=== PATIENT | female | born 1940 | race Caucasian/White ===

== ENCOUNTER 2021-05-09 22:37 | Inpatient (IN) ==
[2021-05-10] MEDS ORDERED: Acetaminophen 325 MG TABLET PO PRN (03:33)
[2021-05-10] MEDS ORDERED: Naloxone 0.4 MG/ML INJ IVP PRN (03:33)
[2021-05-10] MEDS ORDERED: Melatonin 3 MG TABLET PO PRN (03:33)
[2021-05-10] MEDS ORDERED: Ondansetron 4 MG/2 ML VIAL IVP PRN (03:33)
[2021-05-10] MEDS ORDERED: *HR* Dextrose 50 % in Water (Syg) 50 ML SYRINGE IVP PRN (03:37)
[2021-05-10] MEDS ORDERED: Dextrose Gel 15 GM/37.5 ML TUBE PO PRN ×2 (03:37)
[2021-05-10] MEDS ORDERED: D5% in Water 1,000 ML IVC PRN (03:37)
[2021-05-10] MEDS ORDERED: methylPREDNISolone 125 MG/2 ML VIAL IVP ONE (03:58)
[2021-05-10] MEDS ORDERED: Furosemide 20 MG/2 ML VIAL IVP ONE (04:05)
[2021-05-10 04:06] LABS: ABG Base Excess 3 mEq/L (-2 to 3); ABG HCO3 29 mEq/L (21-27); ABG Oxygen Saturation 88 % (95-98); ABG PCO2 49 mmHg (35-45); ABG PH 7.39 pH Units (7.32-7.45); ABG PO2 56 mmHg (85-104); ABG TCO2 31 mEq/L (20-26); Blood Gas Modality NIV
[2021-05-10] MEDS: Ipratropium 1 PUFF INHALER IH SCH ×6 (04:07→23:42)
[2021-05-10 04:33] LABS: Basophils % 0.1 %; Eosinophils % 0.1 %; Hematocrit 40.5 % (35.3-44.9); Hemoglobin 12.9 g/dL (11.5-15.4); Immature Granulocytes % 0.3 % (0-4); Immature Platelets 6.4 % (1.1-6.1); Lymphocytes # 0.7 K/mcL (0.6-4.6); Mean Corpuscular HGB Conc 31.9 g/dL (31.6-35.5); Mean Corpuscular Hemoglobin 27.2 pg (28.0-33.3); Mean Corpuscular Volume 85.3 fL (83.0-100.0); Mean Platelet Volume 10.3 fL (9.4-12.4); Monocytes # 0.8 K/mcL (0.0-1.3); Monocytes % 7.3 %; Neutrophils # 9.3 K/mcL (1.6-8.9); Platelet Count 105 K/mcL (140-400); Red Blood Count 4.75 M/mcL (3.82-4.97); Red Cell Distribution Width 19.6 % (11.5-14.5); Segmented Neutrophils % 86.2 %; White Blood Count 10.8 K/mcL (4.3-11.1)
[2021-05-10 04:40] LABS: INR 1.2; Prothrombin Time 13.7 Seconds (9.4-12.1)
[2021-05-10 04:53] LABS: Lactate Dehydrogenase 578 Units/L (140-271)
[2021-05-10] MEDS: Dexmedetomidine HCl 400 MCG/100 ML MLS IVC SCH ×3 (05:02→17:04)
[2021-05-10 05:04] LABS: Alanine Aminotransferase 25 Units/L (7-52); Albumin 3.6 g/dL (3.5-5.7); Albumin/Globulin Ratio 1.3 (1.1-2.2); Alkaline Phosphatase 87 Units/L (34-104); Aspartate Amino Transferase 46 Units/L (13-39); BUN/Creatinine Ratio 22 (6-26); Bilirubin,Total 0.5 mg/dL (0.3-1.0); Blood Urea Nitrogen 17 mg/dL (8-23); Carbon Dioxide 31 mEq/L (23-29); Chloride 95 mEq/L (98-107); Globulin 2.7 g/dL (2.4-3.5); Glucose 100 mg/dL (70-105); Osmolality,Calculated 282 (280-300); Phosphorous 2.8 mg/dL (2.7-4.5); Potassium 3.5 mEq/L (3.5-5.1); Sodium 135 mEq/L (136-145); Total Protein 6.3 g/dL (6.4-8.9); eGFR For African Americans > 60 (> 60); eGFR For Non-African Americans > 60 (> 60)
[2021-05-10] MEDS ORDERED: *HR* Heparin 5,000 UNIT/ML VIAL IVP ONE (06:33)
[2021-05-10] MEDS ORDERED: *HR* Heparin 5,000 UNIT/ML VIAL IVP PRN ×2 (06:33)
[2021-05-10] MEDS ORDERED: Budesonide/Formoterol 160/4.5 1 PUFF INH IH ONE (06:43)
[2021-05-10] MEDS ORDERED: Heparin 25,000 UNIT/250 ML 25,000 UNIT/250 ML IV.SOLN IVC SCH (06:45)
[2021-05-10] MEDS: Budesonide/Formoterol 160/4.5 1 PUFF INH IH SCH ×2 (07:27→20:03)
[2021-05-10] MEDS: Dexamethasone Sodium Phos/PF 10 MG/ML VIAL IVP SCH (08:30)
[2021-05-10] MEDS: Saline Nasal Spray 44 ML BOTTLE NS SCH ×4 (08:37→19:54)
[2021-05-10] MEDS: Multivit/Ca/Min/Fe/FA 1 TAB TABLET PO SCH (08:37)
[2021-05-10] MEDS: Saliva Stimulant 44.3ml BOTTLE PO SCH ×4 (08:37→19:54)
[2021-05-10] MEDS: Artificial Tears SOLN 15 ML BOTTLE BOTH EYES SCH ×4 (08:37→19:53)
[2021-05-10] MEDS: Cholecalciferol (D-3) 1,000 UNIT (25MCG) TABLET PO SCH (08:37)
[2021-05-10] MEDS: Aspirin 81 MG TAB.CHEW PO SCH (08:37)
[2021-05-10] MEDS ORDERED: Chlorhexidine Rinse 15 ML MOUTHWASH MM SCH (09:00)
[2021-05-10] MEDS ORDERED: Haloperidol Lactate 5 MG/ML VIAL IVP ONE (09:43)
[2021-05-10 09:56] LABS: C-Reactive Protein 83 mg/L (Less than 10)
[2021-05-10 13:24] LABS: Ferritin 385 ng/mL (10-120)
[2021-05-10] MEDS ORDERED: Pantoprazole 40 MG VIAL IVP SCH (14:15)
[2021-05-10] MEDS: cefTRIAXone 1,000 MG in 0.9 % Sodium Chloride Mini Bag 100 ML IVP SCH (15:34)
[2021-05-10] MEDS ORDERED: Piperacillin/Tazobactam 3.375 GM in 0.9 % Sodium Chloride Mini Bag 100 ML IVPB SCH (16:00)
[2021-05-10] MEDS: Famotidine 20 MG/2 ML VIAL IVP SCH (17:05)
[2021-05-10] MEDS: *HR* Enoxaparin 40 MG/0.4 ML SYRINGE SQ SCH (17:05)
[2021-05-10] MEDS: Haloperidol Lactate 5 MG/ML VIAL IVP PRN (17:53)
[2021-05-10] MEDS ORDERED: *HR* Heparin 5,000 UNIT/ML VIAL SQ SCH (18:00)
[2021-05-10] MEDS: *HR* LORazepam 2 MG/ML VIAL IVP PRN (18:17)
[2021-05-10] MEDS ORDERED: Water for inj. (sterile) 10 ML ONE (19:36)
[2021-05-10] MEDS: Ziprasidone 10 MG, Closed System Device IM Kit 1 EACH in Water for inj. (sterile) 0.5 ML IM ONE ×2 (19:44→19:51)
[2021-05-10] MEDS ORDERED: *HR* LORazepam 2 MG/ML VIAL IVP ONE ×2 (20:54→22:15)
[2021-05-11] MEDS: Dexmedetomidine HCl 400 MCG/100 ML MLS IVC SCH ×5 (00:16→20:09)
[2021-05-11 03:21] LABS: Hematocrit 36.7 % (35.3-44.9); Hemoglobin 12.3 g/dL (11.5-15.4); Immature Platelets 6.9 % (1.1-6.1); Mean Corpuscular HGB Conc 33.5 g/dL (31.6-35.5); Mean Corpuscular Hemoglobin 28.2 pg (28.0-33.3); Mean Corpuscular Volume 84.2 fL (83.0-100.0); Mean Platelet Volume 10.5 fL (9.4-12.4); Red Blood Count 4.36 M/mcL (3.82-4.97); Red Cell Distribution Width 19.1 % (11.5-14.5); White Blood Count 4.4 K/mcL (4.3-11.1)
[2021-05-11 03:43] LABS: BUN/Creatinine Ratio 44 (6-26); Blood Urea Nitrogen 32 mg/dL (8-23); Calcium 8.8 mg/dL (8.6-10.3); Carbon Dioxide 31 mEq/L (23-29); Chloride 98 mEq/L (98-107); Glucose 178 mg/dL (70-105); Osmolality,Calculated 297 (280-300); Potassium 3.4 mEq/L (3.5-5.1); Sodium 138 mEq/L (136-145); eGFR For African Americans > 60 (> 60); eGFR For Non-African Americans > 60 (> 60)
[2021-05-11] MEDS: Ipratropium 1 PUFF INHALER IH SCH ×6 (03:52→23:19)
[2021-05-11] MEDS: *HR* Enoxaparin 40 MG/0.4 ML SYRINGE SQ SCH ×2 (05:30→16:09)
[2021-05-11] MEDS: Famotidine 20 MG/2 ML VIAL IVP SCH ×2 (05:30→16:09)
[2021-05-11] MEDS: Budesonide/Formoterol 160/4.5 1 PUFF INH IH SCH ×2 (07:24→19:24)
[2021-05-11] MEDS: Saliva Stimulant 44.3ml BOTTLE PO SCH ×4 (09:29→21:01)
[2021-05-11] MEDS: Saline Nasal Spray 44 ML BOTTLE NS SCH ×4 (09:29→21:01)
[2021-05-11] MEDS: Aspirin 81 MG TAB.CHEW PO SCH (09:29)
[2021-05-11] MEDS: Artificial Tears SOLN 15 ML BOTTLE BOTH EYES SCH ×4 (09:29→21:01)
[2021-05-11] MEDS: Cholecalciferol (D-3) 1,000 UNIT (25MCG) TABLET PO SCH (09:30)
[2021-05-11] MEDS: Multivit/Ca/Min/Fe/FA 1 TAB TABLET PO SCH (09:30)
[2021-05-11] MEDS: Dexamethasone Sodium Phos/PF 10 MG/ML VIAL IVP SCH (09:32)
[2021-05-11] MEDS: Haloperidol Lactate 5 MG/ML VIAL IVP PRN (15:02)
[2021-05-11] MEDS: cefTRIAXone 1,000 MG in 0.9 % Sodium Chloride Mini Bag 100 ML IVP SCH (15:03)
[2021-05-11] MEDS: *HR* LORazepam 2 MG/ML VIAL IVP PRN ×3 (16:09→23:10)
[2021-05-11] MEDS: Morphine Sulfate 2 MG/ML SYRINGE IVP PRN (16:26)
[2021-05-11] MEDS ORDERED: Ziprasidone 10 MG, Closed System Device IM Kit 1 EACH in Water for inj. (sterile) 0.5 ML IM ONE (16:58)
[2021-05-11] MEDS ORDERED: Ziprasidone 10 MG, Closed System Device IM Kit 1 EACH in Water for inj. (sterile) 0.5 ML IM PRN (17:02)
[2021-05-12] MEDS: Dexmedetomidine HCl 400 MCG/100 ML MLS IVC SCH ×5 (00:05→20:14)
[2021-05-12] MEDS: Haloperidol Lactate 5 MG/ML VIAL IVP PRN ×3 (00:44→15:29)
[2021-05-12] MEDS: Ipratropium 1 PUFF INHALER IH SCH ×6 (03:23→23:02)
[2021-05-12] MEDS ORDERED: diazePAM 10 MG/2 ML SYRINGE IVP ONE (04:52)
[2021-05-12] MEDS: Famotidine 20 MG/2 ML VIAL IVP SCH ×2 (05:36→16:33)
[2021-05-12] MEDS: *HR* Enoxaparin 40 MG/0.4 ML SYRINGE SQ SCH ×2 (05:37→16:33)
[2021-05-12] MEDS: Morphine Sulfate 2 MG/ML SYRINGE IVP PRN ×2 (06:23→12:02)
[2021-05-12] MEDS: Saline Nasal Spray 44 ML BOTTLE NS SCH ×3 (07:25→15:11)
[2021-05-12] MEDS: Saliva Stimulant 44.3ml BOTTLE PO SCH ×3 (07:25→15:11)
[2021-05-12] MEDS: Artificial Tears SOLN 15 ML BOTTLE BOTH EYES SCH ×3 (07:25→15:10)
[2021-05-12] MEDS: Aspirin 81 MG TAB.CHEW PO SCH (07:26)
[2021-05-12] MEDS: Multivit/Ca/Min/Fe/FA 1 TAB TABLET PO SCH (07:26)
[2021-05-12] MEDS: Cholecalciferol (D-3) 1,000 UNIT (25MCG) TABLET PO SCH (07:26)
[2021-05-12] MEDS: Dexamethasone Sodium Phos/PF 10 MG/ML VIAL IVP SCH (07:33)
[2021-05-12] MEDS: *HR* LORazepam 2 MG/ML VIAL IVP PRN ×2 (07:34→13:22)
[2021-05-12] MEDS: Budesonide/Formoterol 160/4.5 1 PUFF INH IH SCH ×2 (07:52→19:44)
[2021-05-12] MEDS: Furosemide 20 MG/2 ML VIAL IVP SCH (08:56)
[2021-05-12] MEDS: cefTRIAXone 1,000 MG in 0.9 % Sodium Chloride Mini Bag 100 ML IVP SCH (13:22)
[2021-05-12] MEDS: *HR* HYDROmorphone (PF) 1 MG/ML SYRINGE IVP PRN ×2 (16:33→20:33)
[2021-05-13] MEDS: *HR* HYDROmorphone (PF) 1 MG/ML SYRINGE IVP PRN ×6 (01:07→22:09)
[2021-05-13] MEDS: Artificial Tears SOLN 15 ML BOTTLE BOTH EYES SCH ×5 (02:37→20:21)
[2021-05-13] MEDS: Dexmedetomidine HCl 400 MCG/100 ML MLS IVC SCH ×5 (02:38→23:28)
[2021-05-13] MEDS: Ipratropium 1 PUFF INHALER IH SCH ×6 (03:59→23:42)
[2021-05-13] MEDS: Saliva Stimulant 44.3ml BOTTLE PO SCH ×5 (04:12→20:21)
[2021-05-13] MEDS: Saline Nasal Spray 44 ML BOTTLE NS SCH ×5 (04:12→20:21)
[2021-05-13] MEDS: *HR* Enoxaparin 40 MG/0.4 ML SYRINGE SQ SCH ×2 (06:12→17:51)
[2021-05-13] MEDS: Famotidine 20 MG/2 ML VIAL IVP SCH ×2 (06:12→17:51)
[2021-05-13 06:23] LABS: Hematocrit 41.3 % (35.3-44.9); Hemoglobin 13.3 g/dL (11.5-15.4); Mean Corpuscular HGB Conc 32.2 g/dL (31.6-35.5); Mean Corpuscular Hemoglobin 27.9 pg (28.0-33.3); Mean Corpuscular Volume 86.6 fL (83.0-100.0); Mean Platelet Volume 10.8 fL (9.4-12.4); Platelet Count 116 K/mcL (140-400); Red Blood Count 4.77 M/mcL (3.82-4.97); Red Cell Distribution Width 19.3 % (11.5-14.5)
[2021-05-13 06:25] LABS: White Blood Count 10.5 K/mcL (4.3-11.1)
[2021-05-13 06:41] LABS: BUN/Creatinine Ratio 52 (6-26); Blood Urea Nitrogen 38 mg/dL (8-23); Calcium 9.2 mg/dL (8.6-10.3); Carbon Dioxide 37 mEq/L (23-29); Chloride 100 mEq/L (98-107); Glucose 132 mg/dL (70-105); Lactate Dehydrogenase 447 Units/L (140-271); Magnesium 2.6 mg/dL (1.6-2.6); Osmolality,Calculated 309 (280-300); Potassium 3.6 mEq/L (3.5-5.1); Sodium 144 mEq/L (136-145); eGFR For African Americans > 60 (> 60); eGFR For Non-African Americans > 60 (> 60)
[2021-05-13 06:57] LABS: Ferritin 248 ng/mL (10-120)
[2021-05-13] MEDS: Budesonide/Formoterol 160/4.5 1 PUFF INH IH SCH ×2 (07:55→19:56)
[2021-05-13] MEDS: Furosemide 20 MG/2 ML VIAL IVP SCH (09:32)
[2021-05-13] MEDS: Aspirin 81 MG TAB.CHEW PO SCH (09:33)
[2021-05-13] MEDS: Dexamethasone Sodium Phos/PF 10 MG/ML VIAL IVP SCH (09:33)
[2021-05-13] MEDS: Cholecalciferol (D-3) 1,000 UNIT (25MCG) TABLET PO SCH (09:33)
[2021-05-13] MEDS: Multivit/Ca/Min/Fe/FA 1 TAB TABLET PO SCH (09:33)
[2021-05-13 12:14] LABS: C-Reactive Protein 40 mg/L (Less than 10)
[2021-05-13] MEDS: *HR* LORazepam 2 MG/ML VIAL IVP PRN ×3 (13:55→18:35)
[2021-05-13] MEDS ORDERED: Ziprasidone 10 MG, Closed System Device IM Kit 1 EACH in Water for inj. (sterile) 0.5 ML IM PRN (15:10)
[2021-05-13] MEDS ORDERED: Haloperidol Lactate 5 MG/ML VIAL IVP PRN (15:11)
[2021-05-13] MEDS: cefTRIAXone 1,000 MG in 0.9 % Sodium Chloride Mini Bag 100 ML IVP SCH (15:50)
[2021-05-14] MEDS: *HR* LORazepam 2 MG/ML VIAL IVP PRN ×4 (00:07→23:18)
[2021-05-14] MEDS: Ipratropium 1 PUFF INHALER IH SCH ×6 (03:33→23:02)
[2021-05-14] MEDS: *HR* HYDROmorphone (PF) 1 MG/ML SYRINGE IVP PRN ×5 (04:02→20:10)
[2021-05-14] MEDS: Dexmedetomidine HCl 400 MCG/100 ML MLS IVC SCH ×4 (04:31→20:08)
[2021-05-14] MEDS: Famotidine 20 MG/2 ML VIAL IVP SCH ×2 (05:18→17:28)
[2021-05-14] MEDS: *HR* Enoxaparin 40 MG/0.4 ML SYRINGE SQ SCH ×2 (05:18→17:28)
[2021-05-14] MEDS: Saliva Stimulant 44.3ml BOTTLE PO SCH ×4 (07:54→20:09)
[2021-05-14] MEDS: Saline Nasal Spray 44 ML BOTTLE NS SCH ×4 (07:54→20:09)
[2021-05-14] MEDS: Artificial Tears SOLN 15 ML BOTTLE BOTH EYES SCH ×4 (07:54→22:31)
[2021-05-14] MEDS: Cholecalciferol (D-3) 1,000 UNIT (25MCG) TABLET PO SCH (07:55)
[2021-05-14] MEDS: Budesonide/Formoterol 160/4.5 1 PUFF INH IH SCH ×2 (07:55→19:24)
[2021-05-14] MEDS: Multivit/Ca/Min/Fe/FA 1 TAB TABLET PO SCH (07:55)
[2021-05-14] MEDS: Levothyroxine Sodium 100 MCG VIAL IVP SCH (08:11)
[2021-05-14] MEDS: Dexamethasone Sodium Phos/PF 10 MG/ML VIAL IVP SCH (08:13)
[2021-05-14] MEDS: Furosemide 20 MG/2 ML VIAL IVP SCH (08:14)
[2021-05-14] MEDS: cefTRIAXone 1,000 MG in 0.9 % Sodium Chloride Mini Bag 100 ML IVP SCH (15:19)
[2021-05-14] MEDS ORDERED: Lidocaine -MPF 1% 5 ML AMPUL INFILT ONE (15:45)
[2021-05-14] MEDS: Insulin LISPRO 300 UNITS/3 ML VIAL SUBQ SCH ×2 (17:29→20:13)
[2021-05-15] MEDS: Insulin LISPRO 300 UNITS/3 ML VIAL SUBQ SCH ×6 (00:55→21:18)
[2021-05-15] MEDS: Dexmedetomidine HCl 400 MCG/100 ML MLS IVC SCH ×5 (00:56→21:15)
[2021-05-15] MEDS: *HR* HYDROmorphone (PF) 1 MG/ML SYRINGE IVP PRN ×3 (02:50→23:04)
[2021-05-15] MEDS: Ipratropium 1 PUFF INHALER IH SCH ×5 (03:14→19:49)
[2021-05-15] MEDS: Famotidine 20 MG/2 ML VIAL IVP SCH ×2 (05:28→17:31)
[2021-05-15] MEDS: *HR* Enoxaparin 40 MG/0.4 ML SYRINGE SQ SCH ×2 (05:28→17:31)
[2021-05-15 05:59] LABS: Hematocrit 42.6 % (35.3-44.9); Hemoglobin 13.1 g/dL (11.5-15.4); Mean Corpuscular HGB Conc 30.8 g/dL (31.6-35.5); Mean Corpuscular Hemoglobin 27.2 pg (28.0-33.3); Mean Corpuscular Volume 88.6 fL (83.0-100.0); Mean Platelet Volume 10.6 fL (9.4-12.4); Platelet Count 131 K/mcL (140-400); Red Blood Count 4.81 M/mcL (3.82-4.97); Red Cell Distribution Width 19.9 % (11.5-14.5); White Blood Count 9.4 K/mcL (4.3-11.1)
[2021-05-15 06:19] LABS: BUN/Creatinine Ratio 47 (6-26); Blood Urea Nitrogen 35 mg/dL (8-23); Calcium 9.7 mg/dL (8.6-10.3); Carbon Dioxide 38 mEq/L (23-29); Chloride 105 mEq/L (98-107); Glucose 138 mg/dL (70-105); INR 2.2; Lactate Dehydrogenase 369 Units/L (140-271); Magnesium 2.6 mg/dL (1.6-2.6); Osmolality,Calculated 318 (280-300); Phosphorous 3.1 mg/dL (2.7-4.5); Potassium 3.8 mEq/L (3.5-5.1); Prothrombin Time 24.3 Seconds (9.4-12.1); Sodium 149 mEq/L (136-145); eGFR For African Americans > 60 (> 60); eGFR For Non-African Americans > 60 (> 60)
[2021-05-15] MEDS: Dexamethasone Sodium Phos/PF 10 MG/ML VIAL IVP SCH (07:55)
[2021-05-15] MEDS: Cholecalciferol (D-3) 1,000 UNIT (25MCG) TABLET PO SCH (07:55)
[2021-05-15] MEDS: Multivit/Ca/Min/Fe/FA 1 TAB TABLET PO SCH (07:55)
[2021-05-15] MEDS: Levothyroxine Sodium 100 MCG VIAL IVP SCH (07:56)
[2021-05-15] MEDS: Furosemide 20 MG/2 ML VIAL IVP SCH (07:56)
[2021-05-15] MEDS: Artificial Tears SOLN 15 ML BOTTLE BOTH EYES SCH ×4 (08:03→21:17)
[2021-05-15] MEDS: Saliva Stimulant 44.3ml BOTTLE PO SCH ×4 (08:03→21:16)
[2021-05-15] MEDS: Saline Nasal Spray 44 ML BOTTLE NS SCH ×4 (08:03→21:15)
[2021-05-15] MEDS: Budesonide/Formoterol 160/4.5 1 PUFF INH IH SCH ×2 (08:07→19:50)
[2021-05-15] MEDS: *HR* LORazepam 2 MG/ML VIAL IVP PRN (09:25)
[2021-05-15 09:50] LABS: C-Reactive Protein 31 mg/L (Less than 10)
[2021-05-15] MEDS ORDERED: D10% in Water 500 ML IVC PRN (12:10)
[2021-05-15] MEDS: cefTRIAXone 1,000 MG in 0.9 % Sodium Chloride Mini Bag 100 ML IVP SCH (14:55)
[2021-05-15] MEDS ORDERED: Clinimix E 5%-15% SOLUTION 2,000 ML with MVI, adult with vitamin K 10 ML IVC SCH (17:00)
[2021-05-16] MEDS: Ipratropium 1 PUFF INHALER IH SCH ×7 (00:09→21:53)
[2021-05-16] MEDS: Insulin LISPRO 300 UNITS/3 ML VIAL SUBQ SCH ×6 (00:33→20:41)
[2021-05-16] MEDS: Dexmedetomidine HCl 400 MCG/100 ML MLS IVC SCH ×5 (01:28→20:24)
[2021-05-16] MEDS: *HR* HYDROmorphone (PF) 1 MG/ML SYRINGE IVP PRN ×3 (01:32→20:43)
[2021-05-16] MEDS: Famotidine 20 MG/2 ML VIAL IVP SCH ×2 (05:29→16:39)
[2021-05-16] MEDS: *HR* Enoxaparin 40 MG/0.4 ML SYRINGE SQ SCH ×2 (05:30→16:39)
[2021-05-16 06:04] LABS: Basophils % 0.1 %; Hematocrit 43.4 % (35.3-44.9); Hemoglobin 13.2 g/dL (11.5-15.4); Immature Granulocytes % 0.5 % (0-4); Lymphocytes # 0.6 K/mcL (0.6-4.6); Lymphocytes % 5.8 %; Mean Corpuscular HGB Conc 30.4 g/dL (31.6-35.5); Mean Corpuscular Hemoglobin 27.2 pg (28.0-33.3); Mean Corpuscular Volume 89.3 fL (83.0-100.0); Mean Platelet Volume 10.5 fL (9.4-12.4); Monocytes # 0.7 K/mcL (0.0-1.3); Monocytes % 7.2 %; Neutrophils # 8.8 K/mcL (1.6-8.9); Platelet Count 132 K/mcL (140-400); Red Blood Count 4.86 M/mcL (3.82-4.97); Red Cell Distribution Width 19.7 % (11.5-14.5); Segmented Neutrophils % 86.4 %; White Blood Count 10.2 K/mcL (4.3-11.1)
[2021-05-16 06:29] LABS: BUN/Creatinine Ratio 56 (6-26); Blood Urea Nitrogen 48 mg/dL (8-23); Calcium 9.5 mg/dL (8.6-10.3); Carbon Dioxide 36 mEq/L (23-29); Chloride 107 mEq/L (98-107); Glucose 168 mg/dL (70-105); Magnesium 2.6 mg/dL (1.6-2.6); Osmolality,Calculated 326 (280-300); Phosphorous 3.1 mg/dL (2.7-4.5); Potassium 3.8 mEq/L (3.5-5.1); Sodium 150 mEq/L (136-145); Triglycerides 207 mg/dL (< 150); eGFR For African Americans > 60 (> 60); eGFR For Non-African Americans > 60 (> 60)
[2021-05-16] MEDS: Budesonide/Formoterol 160/4.5 1 PUFF INH IH SCH ×2 (07:50→20:12)
[2021-05-16] MEDS: Cholecalciferol (D-3) 1,000 UNIT (25MCG) TABLET PO SCH (08:32)
[2021-05-16] MEDS: Saliva Stimulant 44.3ml BOTTLE PO SCH ×4 (08:32→20:41)
[2021-05-16] MEDS: Multivit/Ca/Min/Fe/FA 1 TAB TABLET PO SCH (08:32)
[2021-05-16] MEDS: Saline Nasal Spray 44 ML BOTTLE NS SCH ×4 (08:32→20:43)
[2021-05-16] MEDS: Artificial Tears SOLN 15 ML BOTTLE BOTH EYES SCH ×4 (08:32→20:41)
[2021-05-16] MEDS: Levothyroxine Sodium 100 MCG VIAL IVP SCH (08:42)
[2021-05-16] MEDS ORDERED: Fat Emulsion 250 ML IVPB SCH (12:30)
[2021-05-16] MEDS: cefTRIAXone 1,000 MG in 0.9 % Sodium Chloride Mini Bag 100 ML IVP SCH (15:28)
[2021-05-16] MEDS ORDERED: Clinimix E 5%-15% SOLUTION 2,000 ML with MVI, adult with vitamin K 10 ML IVC SCH (17:00)
[2021-05-17] MEDS: Dexmedetomidine HCl 400 MCG/100 ML MLS IVC SCH ×6 (00:07→22:26)
[2021-05-17] MEDS: Insulin LISPRO 300 UNITS/3 ML VIAL SUBQ SCH ×7 (00:08→23:48)
[2021-05-17] MEDS: *HR* HYDROmorphone (PF) 1 MG/ML SYRINGE IVP PRN ×5 (01:26→19:48)
[2021-05-17] MEDS: Ipratropium 1 PUFF INHALER IH SCH ×6 (03:39→23:35)
[2021-05-17] MEDS: *HR* Enoxaparin 40 MG/0.4 ML SYRINGE SQ SCH ×2 (05:35→17:30)
[2021-05-17] MEDS: Famotidine 20 MG/2 ML VIAL IVP SCH ×2 (05:35→17:32)
[2021-05-17] MEDS: *HR* LORazepam 2 MG/ML VIAL IVP PRN ×2 (05:52→22:26)
[2021-05-17] MEDS: Artificial Tears SOLN 15 ML BOTTLE BOTH EYES SCH ×4 (07:53→20:59)
[2021-05-17] MEDS: Saline Nasal Spray 44 ML BOTTLE NS SCH ×3 (07:55→15:34)
[2021-05-17] MEDS: Levothyroxine Sodium 100 MCG VIAL IVP SCH (07:58)
[2021-05-17] MEDS: Cholecalciferol (D-3) 1,000 UNIT (25MCG) TABLET PO SCH (08:01)
[2021-05-17] MEDS: Multivit/Ca/Min/Fe/FA 1 TAB TABLET PO SCH (08:01)
[2021-05-17 08:20] LABS: Basophils % 0.1 %; Eosinophils # 0.1 K/mcL (0.0-0.6); Eosinophils % 0.4 %; Hematocrit 43.5 % (35.3-44.9); Hemoglobin 13.4 g/dL (11.5-15.4); Immature Granulocytes % 0.5 % (0-4); Lymphocytes # 0.8 K/mcL (0.6-4.6); Lymphocytes % 6.2 %; Mean Corpuscular HGB Conc 30.8 g/dL (31.6-35.5); Monocytes # 1.1 K/mcL (0.0-1.3); Monocytes % 9.1 %; Neutrophils # 10.3 K/mcL (1.6-8.9); Platelet Count 122 K/mcL (140-400); Red Blood Count 4.78 M/mcL (3.82-4.97); Red Cell Distribution Width 19.2 % (11.5-14.5); Segmented Neutrophils % 83.7 %; White Blood Count 12.3 K/mcL (4.3-11.1)
[2021-05-17] MEDS: Saliva Stimulant 44.3ml BOTTLE PO SCH ×4 (08:27→20:59)
[2021-05-17] MEDS: Budesonide/Formoterol 160/4.5 1 PUFF INH IH SCH ×2 (08:29→19:40)
[2021-05-17 08:37] LABS: Alanine Aminotransferase 19 Units/L (7-52); Albumin 3.1 g/dL (3.5-5.7); Albumin/Globulin Ratio 1.3 (1.1-2.2); Alkaline Phosphatase 92 Units/L (34-104); Aspartate Amino Transferase 27 Units/L (13-39); BUN/Creatinine Ratio 51 (6-26); Bilirubin,Total 0.6 mg/dL (0.3-1.0); Blood Urea Nitrogen 36 mg/dL (8-23); Calcium 9.3 mg/dL (8.6-10.3); Carbon Dioxide 36 mEq/L (23-29); Chloride 108 mEq/L (98-107); Globulin 2.4 g/dL (2.4-3.5); Glucose 166 mg/dL (70-105); Magnesium 2.5 mg/dL (1.6-2.6); Osmolality,Calculated 322 (280-300); Phosphorous 2.7 mg/dL (2.7-4.5); Potassium 3.5 mEq/L (3.5-5.1); Sodium 150 mEq/L (136-145); Total Protein 5.5 g/dL (6.4-8.9); eGFR For African Americans > 60 (> 60); eGFR For Non-African Americans > 60 (> 60)
[2021-05-17] MEDS ORDERED: D5% in Water 1,000 ML IVC SCH (11:15)
[2021-05-17] MEDS: Cefepime HCl 2,000 MG in 0.9 % Sodium Chloride Mini Bag 100 ML IVPB SCH ×2 (12:41→20:58)
[2021-05-17] MEDS ORDERED: Cefepime HCl 2,000 MG in 0.9 % Sodium Chloride Mini Bag 100 ML IVPB SCH (16:00)
[2021-05-17] MEDS ORDERED: Clinimix E 5%-15% SOLUTION 2,000 ML with MVI, adult with vitamin K 10 ML IVC SCH ×2 (17:00)
[2021-05-17 18:26] LABS: BUN/Creatinine Ratio 53 (6-26); Blood Urea Nitrogen 34 mg/dL (8-23); Carbon Dioxide 34 mEq/L (23-29); Chloride 107 mEq/L (98-107); Glucose 306 mg/dL (70-105); Osmolality,Calculated 319 (280-300); Sodium 145 mEq/L (136-145); eGFR For African Americans > 60 (> 60); eGFR For Non-African Americans > 60 (> 60)
[2021-05-18] MEDS: *HR* HYDROmorphone (PF) 1 MG/ML SYRINGE IVP PRN ×6 (00:48→21:04)
[2021-05-18] MEDS: Dexmedetomidine HCl 400 MCG/100 ML MLS IVC SCH ×4 (03:00→21:04)
[2021-05-18] MEDS: Cefepime HCl 2,000 MG in 0.9 % Sodium Chloride Mini Bag 100 ML IVPB SCH ×3 (03:01→21:07)
[2021-05-18] MEDS: Insulin LISPRO 300 UNITS/3 ML VIAL SUBQ SCH ×4 (03:16→21:11)
[2021-05-18 03:51] LABS: Basophils % 0.2 %; Eosinophils % 0.2 %; Hematocrit 43.9 % (35.3-44.9); Hemoglobin 13.4 g/dL (11.5-15.4); Immature Granulocytes % 0.7 % (0-4); Lymphocytes # 0.9 K/mcL (0.6-4.6); Lymphocytes % 7.2 %; Mean Corpuscular HGB Conc 30.5 g/dL (31.6-35.5); Mean Corpuscular Hemoglobin 28.4 pg (28.0-33.3); Monocytes # 1.1 K/mcL (0.0-1.3); Monocytes % 8.7 %; Platelet Count 105 K/mcL (140-400); Red Blood Count 4.72 M/mcL (3.82-4.97); Red Cell Distribution Width 18.1 % (11.5-14.5)
[2021-05-18] MEDS: Ipratropium 1 PUFF INHALER IH SCH ×6 (03:54→23:13)
[2021-05-18 03:57] LABS: Alanine Aminotransferase 20 Units/L (7-52); Albumin/Globulin Ratio 1.3 (1.1-2.2); Alkaline Phosphatase 98 Units/L (34-104); Aspartate Amino Transferase 29 Units/L (13-39); BUN/Creatinine Ratio 57 (6-26); Bilirubin,Total 0.6 mg/dL (0.3-1.0); Blood Urea Nitrogen 35 mg/dL (8-23); Calcium 9.2 mg/dL (8.6-10.3); Carbon Dioxide 31 mEq/L (23-29); Chloride 112 mEq/L (98-107); Globulin 2.4 g/dL (2.4-3.5); Glucose 189 mg/dL (70-105); Magnesium 2.3 mg/dL (1.6-2.6); Osmolality,Calculated 319 (280-300); Phosphorous 2.7 mg/dL (2.7-4.5); Sodium 148 mEq/L (136-145); Total Protein 5.4 g/dL (6.4-8.9); eGFR For African Americans > 60 (> 60); eGFR For Non-African Americans > 60 (> 60)
[2021-05-18] MEDS: Saline Nasal Spray 44 ML BOTTLE NS SCH ×4 (05:50→21:05)
[2021-05-18] MEDS: Famotidine 20 MG/2 ML VIAL IVP SCH ×2 (05:51→17:27)
[2021-05-18] MEDS: *HR* Enoxaparin 40 MG/0.4 ML SYRINGE SQ SCH ×2 (05:51→17:27)
[2021-05-18] MEDS: Budesonide/Formoterol 160/4.5 1 PUFF INH IH SCH ×2 (07:50→19:31)
[2021-05-18] MEDS: Artificial Tears SOLN 15 ML BOTTLE BOTH EYES SCH ×3 (09:48→21:05)
[2021-05-18] MEDS: Saliva Stimulant 44.3ml BOTTLE PO SCH ×3 (09:48→21:05)
[2021-05-18] MEDS: Levothyroxine Sodium 100 MCG VIAL IVP SCH (09:50)
[2021-05-18] MEDS: Multivit/Ca/Min/Fe/FA 1 TAB TABLET PO SCH (09:50)
[2021-05-18] MEDS: Cholecalciferol (D-3) 1,000 UNIT (25MCG) TABLET PO SCH (09:51)
[2021-05-18] MEDS ORDERED: Clinimix 5%-20% SOLUTION 2,000 ML with MVI, adult with vitamin K 10 ML, Sodium Phosph... IVC SCH (17:00)
[2021-05-18] MEDS ORDERED: Clinimix E 5%-15% SOLUTION 2,000 ML with MVI, adult with vitamin K 10 ML IVC SCH (17:00)
[2021-05-19] MEDS: *HR* HYDROmorphone (PF) 1 MG/ML SYRINGE IVP PRN ×4 (00:23→19:43)
[2021-05-19] MEDS: Dexmedetomidine HCl 400 MCG/100 ML MLS IVC SCH ×5 (00:25→18:51)
[2021-05-19] MEDS: Insulin LISPRO 300 UNITS/3 ML VIAL SUBQ SCH ×7 (00:28→18:06)
[2021-05-19] MEDS: *HR* LORazepam 2 MG/ML VIAL IVP PRN ×2 (03:20→19:39)
[2021-05-19] MEDS: Cefepime HCl 2,000 MG in 0.9 % Sodium Chloride Mini Bag 100 ML IVPB SCH ×2 (03:21→18:05)
[2021-05-19] MEDS: Ipratropium 1 PUFF INHALER IH SCH ×6 (03:39→23:24)
[2021-05-19 04:11] LABS: Hematocrit 38.3 % (35.3-44.9); Hemoglobin 11.5 g/dL (11.5-15.4); Mean Corpuscular Hemoglobin 28.2 pg (28.0-33.3); Mean Corpuscular Volume 93.9 fL (83.0-100.0); Mean Platelet Volume 11.2 fL (9.4-12.4); Platelet Count 95 K/mcL (140-400); Red Blood Count 4.08 M/mcL (3.82-4.97); Red Cell Distribution Width 18.1 % (11.5-14.5); White Blood Count 11.2 K/mcL (4.3-11.1)
[2021-05-19 04:12] LABS: Basophils % 0.1 %; Eosinophils % 0.1 %; Immature Granulocytes % 0.5 % (0-4); Lymphocytes # 0.8 K/mcL (0.6-4.6); Lymphocytes % 7.2 %; Monocytes % 8.8 %; Neutrophils # 9.3 K/mcL (1.6-8.9); Segmented Neutrophils % 83.3 %
[2021-05-19 04:16] LABS: Alanine Aminotransferase 35 Units/L (7-52); Albumin 2.7 g/dL (3.5-5.7); Albumin/Globulin Ratio 1.3 (1.1-2.2); Alkaline Phosphatase 86 Units/L (34-104); Aspartate Amino Transferase 39 Units/L (13-39); BUN/Creatinine Ratio 58 (6-26); Bilirubin,Total 0.6 mg/dL (0.3-1.0); Blood Urea Nitrogen 32 mg/dL (8-23); Calcium 8.5 mg/dL (8.6-10.3); Carbon Dioxide 30 mEq/L (23-29); Chloride 117 mEq/L (98-107); Globulin 2.1 g/dL (2.4-3.5); Glucose 199 mg/dL (70-105); Osmolality,Calculated 322 (280-300); Phosphorous 2.4 mg/dL (2.7-4.5); Potassium 3.8 mEq/L (3.5-5.1); Sodium 150 mEq/L (136-145); Total Protein 4.8 g/dL (6.4-8.9); eGFR For African Americans > 60 (> 60); eGFR For Non-African Americans > 60 (> 60)
[2021-05-19 05:45] LABS: Platelet Estimate Decreased (Normal)
[2021-05-19] MEDS: *HR* Enoxaparin 40 MG/0.4 ML SYRINGE SQ SCH ×2 (06:12→18:04)
[2021-05-19] MEDS: Famotidine 20 MG/2 ML VIAL IVP SCH ×2 (06:13→18:04)
[2021-05-19] MEDS: Budesonide/Formoterol 160/4.5 1 PUFF INH IH SCH ×2 (08:11→19:52)
[2021-05-19] MEDS: Levothyroxine Sodium 100 MCG VIAL IVP SCH (10:56)
[2021-05-19] MEDS: Artificial Tears SOLN 15 ML BOTTLE BOTH EYES SCH ×2 (11:07→16:08)
[2021-05-19] MEDS: Cholecalciferol (D-3) 1,000 UNIT (25MCG) TABLET PO SCH (11:08)
[2021-05-19] MEDS: Saline Nasal Spray 44 ML BOTTLE NS SCH ×2 (11:08→16:09)
[2021-05-19] MEDS: Multivit/Ca/Min/Fe/FA 1 TAB TABLET PO SCH (11:08)
[2021-05-19] MEDS: Saliva Stimulant 44.3ml BOTTLE PO SCH ×2 (11:08→16:08)
[2021-05-19] MEDS ORDERED: Clinimix 5%-20% SOLUTION 2,000 ML with MVI, adult with vitamin K 10 ML, Calcium Gluco... IVC SCH (17:00)
[2021-05-19] MEDS ORDERED: Clinimix E 5%-15% SOLUTION 2,000 ML with MVI, adult with vitamin K 10 ML IVC SCH (17:00)
[2021-05-20] MEDS: Dexmedetomidine HCl 400 MCG/100 ML MLS IVC SCH ×5 (01:41→18:09)
[2021-05-20] MEDS: *HR* HYDROmorphone (PF) 1 MG/ML SYRINGE IVP PRN ×4 (01:49→13:40)
[2021-05-20] MEDS: Ipratropium 1 PUFF INHALER IH SCH ×2 (03:19→07:31)
[2021-05-20] MEDS: Artificial Tears SOLN 15 ML BOTTLE BOTH EYES SCH ×4 (04:38→18:09)
[2021-05-20] MEDS: Insulin LISPRO 300 UNITS/3 ML VIAL SUBQ SCH ×4 (04:38→09:02)
[2021-05-20] MEDS: Saliva Stimulant 44.3ml BOTTLE PO SCH ×4 (04:38→18:08)
[2021-05-20] MEDS: Saline Nasal Spray 44 ML BOTTLE NS SCH ×4 (04:39→18:08)
[2021-05-20] MEDS: Cefepime HCl 2,000 MG in 0.9 % Sodium Chloride Mini Bag 100 ML IVPB SCH ×2 (04:39→04:43)
[2021-05-20] MEDS: Famotidine 20 MG/2 ML VIAL IVP SCH (04:44)
[2021-05-20] MEDS: *HR* Enoxaparin 40 MG/0.4 ML SYRINGE SQ SCH (04:44)
[2021-05-20] MEDS: Budesonide/Formoterol 160/4.5 1 PUFF INH IH SCH (07:31)
[2021-05-20] MEDS: Cholecalciferol (D-3) 1,000 UNIT (25MCG) TABLET PO SCH (09:03)
[2021-05-20] MEDS: Multivit/Ca/Min/Fe/FA 1 TAB TABLET PO SCH (09:03)
[2021-05-20] MEDS: Levothyroxine Sodium 100 MCG VIAL IVP SCH (09:17)
[2021-05-20] MEDS ORDERED: FentaNYL (PF) 1,000 MCG in 0.9 % Sodium Chloride 80 ML IVC SCH (11:15)
[2021-05-20] MEDS: *HR* LORazepam 2 MG/ML VIAL IVP SCH ×2 (12:10→15:40)
[2021-05-20] MEDS ORDERED: *HR* LORazepam 2 MG/ML VIAL IVP PRN (13:37)
[2021-05-20] MEDS ORDERED: *HR* HYDROmorphone (PF) 1 MG/ML SYRINGE IVP PRN (14:24)
== END 2021-05-20 19:35 | disposition expired | DRG 871 ==
LOC: 2NENU → SUATTDRO 05-10 03:11
PROVIDERS: ADMIT Internal Medicine; ATTEND Student in an Organized Health Care Education/Training Program